=== PATIENT | male | born 1995 | race Caucasian/White ===

== ENCOUNTER 2016-10-28 12:33 | Emergency (ER) | payer OTHER ==
--- NOTE | 2016-10-28 14:30 | DIAGNOSTIC IMAGING REPORT ---
PROCEDURE: CT ABD/PELVIS WITH CONTRAST CLINICAL INDICATION: ABDOMINAL PAIN TECHNIQUE: 115 ml of Isovue 300 were injected intravenously and axial images were obtained of the entire abdomen and pelvis with sagittal and coronal reformations. COMPARISON: None. FINDINGS: ABDOMEN: Partially visualized small right medial basilar infiltrate. Liver, gallbladder, pancreas, spleen, adrenal glands, kidneys and abdominal aorta are normal. There is some fluid in the large bowel. Small amount of free fluid around the tip of the liver. PELVIS: Prostate and bladder are normal. Small amount of free fluid. Several nondilated fluid filled loops of small bowel. Appendix not clearly identified but no evidence of acute appendicitis. Bones are unremarkable. IMPRESSION: 1. Fluid in the small and large bowel suggestive of enterocolitis 2. Small amount of free fluid, likely related to enterocolitis 3. Small right basilar infiltrate 4. Results discussed with MERRICK Quach . All CT scans at this facility use dose modulation, iterative reconstruction, and/or weight-based dosing when appropriate to reduce radiation dose to as low as reasonably achievable.
--- NOTE | 2016-10-28 15:16 | ED CLINICAL REPORT ---
Clinical Report - Physicians/Mid Levels Formerly [facility] [address] [place] [address] 10/28/2016 12:36 Patient: BRIGIDO REMY Time Seen: 12:47 Oct 28 2016. Arrived- By private vehicle. Historian- patient. HISTORY OF PRESENT ILLNESS Chief Complaint: ABDOMINAL PAIN. It is described as "pain" and it is described as located in the right chest and the epigastric area and in the upper abdomen. This started 5 days [employer] and is still present. The patient has had nausea, loss of appetite, vomiting and diarrhea. (patient reports nausea vomiting diarrhea decreased appetite and fevers over the last 2 days. Reports generalized abdominal pain. Denies any sick contacts, recent medications. Denies any recent antibiotics. Denies history of similar. Patient smokes marijuana off and on last smoked yesterday. Was seen in urgent care clinic yesterday, given some IV hydration, as well as some nausea medications.). REVIEW OF SYSTEMS No constipation, difficulty with urination, pain with urination, urinary frequency or difficulty breathing. No chills. He has had fever. All systems otherwise negative, except as recorded above. PAST HISTORY No history of bowel obstruction. SOCIAL HISTORY Smoker- current status unknown. History of drug use: marijuana. No alcohol use. ADDITIONAL NOTES The nursing notes have been reviewed. PHYSICAL EXAM Vital Signs: 10/28/2016 12:40 BP: 121/78. HR: 120. RR: 20. O2 saturation: 97%. Temp: 102.1 F. Pain level now: 9/10. Appearance: Alert. Eyes: Eyes normal inspection. ENT: Nose normal. Neck: Normal inspection. CVS: Tachycardia. Respiratory: Breath sounds normal. Abdomen: Mild tenderness in the epigastric area and periumbilical area. No organomegaly. No mass. No obesity, rebound tenderness, distention, mass present or organomegaly. No femoral pulse deficit, scar present or guarding. Neuro: Oriented X 3. No motor deficit. LABS, X-RAYS, AND EKG Chest X-ray: (probably r. infiltrate.). The X-rays were independently viewed by me. Abdominal CT: IMPRESSION: 1. Fluid in the small and large bowel suggestive of enterocolitis 2. Small amount of free fluid, likely related to enterocolitis 3. Small right basilar infiltrate 4. Results discussed with MERRICK Quach . All CT scans at this facility use dose modulation, iterative reconstruction, and/or weight-based dosing when appropriate to reduce radiation dose to as low as reasonably achievable. Electronically Final signed by:Miguel Rooney MD 10/28/2016 2:30:12 PM. Laboratory Tests: CBC w Diff: (BRUCE: 10/28/2016 12:40) ( OrgRcvd 10/28/2016 13:04) IP Test Result Flag Units (Reference) WHITE BLOOD COUNT 5.4 K/uL (4.5-11.5) RED BLOOD COUNT 5.56 M/uL (4.50-5.90) HEMOGLOBIN 17.0 gm/dL (13.5-17.5) HEMATOCRIT 49.6 % (41.0-53.0) MEAN CELL VOLUME 89 fL (80-100) MEAN CORPUSCULAR HGB 31 pg (26-34) MEAN CORPUSCULAR HGB CONC 34 g/dL (31-37) RED CELL DISTRIBUTION WIDTH 12.5 % (11.6-14.8) NEUTROPHIL % 71.0 % (50-75) LYMPH % 18.0 L % (25-40) MONO % 10.9 % (3-14) EOSINOPHIL % 0 % (0-4) BASOPHIL % 0.1 % (0-2) CMP: (BRUCE: 10/28/2016 12:40) ( OrgRcvd 10/28/2016 13:20) Final results Test Result Flag Units (Reference) GLUCOSE 103 mg/dL (70-110) BUN 7 mg/dL (7-18) CREATININE 1.1 mg/dL (0.6-1.3) Estimated GFR >60 mL/min Estimated GFR- >60 mL/min Note: Persistent reduction over 3 months in eGFR<60 mL/min/1.73 m2 defines CKD. Patients with eGFR values>=60 mL/min/1.73 m2 may also have CKD if evidence ofpersistent proteinuria. Additional information may be foundat [email or web address].org. SODIUM 134 L mmol/L (136-145) POTASSIUM 3.5 mmol/L (3.5-5.1) CHLORIDE 94 L mmol/L (98-107) CARBON DIOXIDE 25 mmol/L (21-32) CALCIUM 8.2 L mg/dL (8.5-10.1) TOTAL PROTEIN 7.9 g/dL (6.4-8.2) ALBUMIN 3.8 g/dL (3.3-5.0) BILIRUBIN, TOTAL 0.9 mg/dL (0.0-1.0) ALKALINE PHOSPHATASE 45 L U/L (46-116) AST (SGOT) 23 U/L (15-37) ALT (SGPT) 21 U/L (12-78) LIPASE 148 U/L (73-393) Rapid Influenza Screen: (BRUCE: 10/28/2016 12:50) ( MsgRcvd 10/28/2016 13:19) Final results SPECIMEN DESCRIPTION: N Test Result Flag Units (Reference) RAPID INFLUENZA SCREEN DATE: 10/28/16 INFLUENZA A: NEGATIVE SCREEN FOR INFLUENZA A INFLUENZA B: NEGATIVE SCREEN FOR INFLUENZA B . PROGRESS AND PROCEDURES Course of Care: The patient in the emergency department with fever, tachycardia, improvement with Tylenol and Toradol. Abdomen with epigastric tenderness. No guarding or peritoneal signs, or McBurney's point tenderness. CT of the abdomen with possible signs of infiltrate right side, as well as signs of enterocolitis. Patient is otherwise stable. No emesis, able tolerate small sips in the emergency department. Her chest x-ray also most consistent with a right-sided possible pneumonia, given her fevers and cough will treat. Patient given 2 L of IV fluid in the emergency department, significant improvement of his symptoms. To follow up outpatient. 10/28/2016 15:30 BP: 113/67. HR: 78. RR: 16. O2 saturation: 97%. Temp: 99.8 F. Pain level now: 10/25. 10/28/2016 14:10 BP: 113/67. HR: 78. RR: 16. O2 saturation: 97%. Pain level now: 8/10. Patient is stable. Physical exam findings are improved. Symptoms better. Patient/family counseled. CLINICAL IMPRESSION Diarrhea Pneumonia. Vital signs recorded and reviewed; empiric antibiotics given in the ED and prescribed. Acute gastroenteritis. INSTRUCTIONS Alternate Tylenol (Acetaminophen) or Motrin (Ibuprofen) for fever control. Take according to label instructions. Rest. Do not work for three days. Drink plenty of fluids. Warnings: Further evaluation is necessary. SEDATIVE MEDICATION: You were given sedative medication during your visit. Do not drive or operate dangerous machinery. Prescription Medications: Hydrocodone/APAP 5mg / 325mg: take 1 orally every 6 hours as needed for pain. No refill. Zithromax 250 mg tablets: every day for 4 days. Total course 4 days. (start on (ER DOSE on 10/28)) Ibuprofen 600 mg tablets: take 1 tablet orally every 6 hours for 3 days, as needed for pain or fever. Dispense fifteen (15). No refill. Phenergan 12.5 mg tablets: take 1 orally every 6 hours as needed for nausea or vomiting. Dispense ten (10). No refill. Substitution is permissible Reglan 10 mg tablets: take 1 orally every 8 hours for 3 days as needed for nausea or vomiting. Dispense ten (10). No refills. Substitution is permissible. OTC Medications: Tylenol 325 mg (available over the counter): take 1 orally every 6 hours for 3 days, as needed for fever or pain. Dispense fifteen (15). No refill. Substitution is permissible. Follow-up: Follow up with your doctor in three if not well. (Electronically signed by Maria L Tejada P.A.-C 10/28/2016 15:48)
--- NOTE | 2016-10-28 15:16 | ED ORDER SUMMARY ---
..... Patient: BRIGIDO REMY OrderSheet [facility] VisitID: [id number] [place] [address] 21y, M Registration Date/Time: 10/28/2016 ORDER SHEET Weight: 60.3 kg (stated) Allergies: Amoxicillin, Penicillins GENERAL ORDERS: CBC w Diff Urgent (12:51 10/28/2016 EKoroleva P.A.-C) (Ack 12:52 Shyann) (12:58 DDean R.N.) CMP Urgent (12:51 10/28/2016 EKoroleva P.A.-C) (Ack 12:52 Shyann) (12:58 DDean R.N.) UA-Culture if indicated Urgent (12:52 10/28/2016 EKoroleva P.A.-C) (Ack 12:52 Shyann) (15:36 DDean R.N.) Lipase Urgent (12:52 10/28/2016 EKoroleva P.A.-C) (Ack 12:52 Shyann) (12:58 DDean R.N.) Rapid Influenza Screen (Nasal Pharyngeal) (n) Urgent (12:52 10/28/2016 EKoroleva P.A.-C) (Ack 13:14 Shyann) (13:24 DDean R.N.) PCT (Procalcitonin) Urgent (13:02 10/28/2016 EKoroleva P.A.-C) (Ack 13:13 Shyann) (13:21 DDean R.N.) CT Abd/Pel w Cont (No) (see lab) Urgent (13:35 10/28/2016 EKoroleva P.A.-C) (Ack 13:45 Shyann) (13:59 Samreen) Chest 2V Urgent (14:30 10/28/2016 EKoroleva P.A.-C) (Ack 14:31 TBergley) (14:52 Samreen) MEDICATION ORDERS: Tylenol PO 1,000 mg (NOW) (12:52 10/28/2016 EKoroleva P.A.-C) (Ack 13:14 DDean R.N.) (Cancelled: Patient [id number] DDean R.N.) Phenergan IV 12.5 mg (HIGH ALERT MEDICATION, NOW) (13:38 10/28/2016 EKoroleva P.A.-C) (13:42 DDean R.N.) Tylenol PO 500 mg (NOW) (14:21 10/28/2016 DDean R.N. per protocol) (14:22 DDean R.N.) Azithromycin PO 500 mg (NOW) (15:14 10/28/2016 EKoroleva P.A.-C) (15:36 DDean R.N.) IV FLUIDS: IV NS : initial bolus 1000 mL (1000 mL/hr), then 1000 mL/hr for X1 (NOW); Lonny (12:51 10/28/2016 EKoroleva P.A.-C) (Ack 12:58 DDean R.N.) (13:24 DDean R.N.) Zofran IV 4 mg (NOW) (12:51 10/28/2016 EKoroleva P.A.-C) (Ack 13:14 DDean R.N.) (13:25 DDean R.N.) Reglan IV 10 mg (NOW) (12:51 10/28/2016 EKoroleva P.A.-C) (Ack 13:14 DDean R.N.) (13:25 DDean R.N.) Toradol IV 30 mg (NOW) (12:52 10/28/2016 EKoroleva P.A.-C) (Ack 13:14 DDean R.N.) (13:25 DDean R.N.) Dilaudid IV 0.5 mg (HIGH ALERT MEDICATION, NOW) (13:38 10/28/2016 EKoroleva P.A.-C) (13:42 DDean R.N.) ORDER SHEET NOTES: [Electronically signed by Ember Bergman R.N. (15:46 10/28/2016)] [Electronically signed by Maria L Tejada PSunshineASunshine-C (15:48 10/28/2016)] [Electronically locked/signed by Ember Bergman R.N. (15:46 10/28/2016)]
--- NOTE | 2016-10-28 15:16 | ED NURSING NOTES ---
Clinical Report - Nurses [facility] [place] [address] [place] [address] 10/28/2016 12:36 Patient: BRIGIDO REMY TRIAGE Triage time 1240. Acuity: LEVEL 3. Chief Complaint: ABDOMINAL PAIN, NAUSEA, VOMITING and DIARRHEA. --12:47 Ember Bergman R.N. 12:40 10/28/16. BP: 121/78. HR: 120. RR: 20. O2 saturation: 97%. Temp: 102.1 F. Pain level now: 02/25. --12:47 Ember Bergman R.N. Weight: 60.3 kg stated. Height/Length: 71.5 inches Per Patient. BMI: 18.3. --12:47 Ember Bergman R.N. Medications zofran 4mg ODT, last used 0600 . --12:45 Ember Bergman R.N. Allergies Amoxicillin. Penicillins. --12:45 Ember Bergman R.N. History Arrived by private vehicle. Historian: patient. Accompanied by mother. Primary physician (glory). Onset. (since Sunday- was seen at clinic on Sunday). He has had nausea, vomiting and diarrhea. He has had abdominal pain (midline abd pain, better after he vomits). PAST MEDICAL HX: Negative. SURGERY HX: No history of previous surgery. SOCIAL HX: Light tobacco smoker- less than 1/2 a pack per day. Occasional alcohol use. History of drug use: marijuana. --12:47 Ember Bergman R.N. PROBLEMS: no known problems. ADDITIONAL SURGERIES: no known surgeries. Interventions ID band on patient. To treatment room. --12:47 Ember Bergman R.N. PHYSICAL ASSESSMENT 12:40. Ambulatory to room. Patient gowned. GENERAL / NEURO / PSYCH: Alert. Oriented X 4. Appears in pain and anxious. RESPIRATORY: Respirations not labored. CVS: Capillary refill less than 2 seconds. GI / : The patient has had nausea. Emesis noted. Abdominal tenderness. SKIN: Skin is warm and dry. --12:48 Ember Bergman R.N. 12:40. GI / : ( denies black or bloody stools,). --13:17 Ember Bergman R.N. NURSING PROGRESS NOTES 12:40. Patient gowned. Reassurance given. Patient identifiers checked. Call light placed in reach. Side rails up. Bed placed in lowest position. Patient ready for evaluation- chart flagged. Care transferred. --12:47 Ember Bergman R.N. 12:49 10/28/2016 Site #1 started via IV in the right antecubital space with an 20g angiocath, with aseptic technique and good blood return; one attempt. Blood drawn: rainbow set. Labeled in the presence of the patient and sent to the lab. Saline lock flushed with saline (by Анна FLORES). --12:49 Ember Bergman R.N. 13:00. Patient ID band checked for patient name and birthdate: patient confirmed. Flu swab obtained by RN via nasal swab. Labeled in the presence of the patient and sent to lab. --13:23 Ember Bergman R.N. 12:55 10/28/2016 Started bag #1 1000 mL IV Fluids IV NS (Saline); at 1000 mL/hr over 1 hour(s) via site #1 via IV pump. IV patency established. IV site checked: no pain, redness, or swelling. IV flushed thoroughly pre- and post-medication administration. --13:24 Ember Bergman R.N. 13:02 10/28/2016 Zofran (Ondansetron HCl) IVP 4 mg given over 1 minute(s) via site #1. IV patency established. IV site checked: no pain, redness, or swelling. IV flushed thoroughly pre- and post-medication administration. IVP given by RN. --13:25 Ember Bergman R.N. 13:03 10/28/2016 Toradol IVP 30 mg given over 1 minute(s) via site #1. IV patency established. IV site checked: no pain, redness, or swelling. IV flushed thoroughly pre- and post-medication administration. IVP given by RN. --13:25 Ember Bergman R.N. 13:05 10/28/2016 Reglan (Metoclopramide HCl) IVP 10 mg given over 1 minute(s) via site #1. IV patency established. IV site checked: no pain, redness, or swelling. IV flushed thoroughly pre- and post-medication administration. IVP given by RN. --13:25 Ember Bergman R.N. 13:15 10/28/16. BP: 111/70. HR: 97. RR: 20. O2 saturation: 100% on room air. Temp: deferred. Pain level now: 01/25. --13:27 Ember Bergman R.N. 13:35 10/28/16. BP: 110/65. HR: 85. RR: 18. O2 saturation: 96% on room air. Temp: 102.2 F. Pain level now: 01/25. Additional comments: Pt given po tyenol, only able to take first pill at this time, ERPA notified, additional nausea meds given . --13:41 Ember Bergman R.N. 13:45. Patient transported to MD by stretcher with tech. --13:48 Ember Bergman R.N. 13:35 10/28/2016 Tylenol (Acetaminophen) PO Tablets 500 mg given. Allergies verified and confirmed 5 rights. --14:22 Ember Bergman R.N. 13:41 10/28/16. ( Pt given instructions and equipment to give UA, Pt unable to void at this time.). --13:41 Ember Bergman R.N. 13:42 10/28/2016 Dilaudid (HYDROmorphone HCl PF) IVP 0.5 mg given over 1 minute(s) via site #1. IV patency established. IV site checked: no pain, redness, or swelling. IV flushed thoroughly pre- and post-medication administration. IVP given by RN. --13:42 Ember Bergman R.N. 13:42 10/28/2016 PHENERGAN (Promethazine HCl) IVP 12.5 mg given over 1 minute(s) via site #1. IV patency established. IV site checked: no pain, redness, or swelling. IV flushed thoroughly pre- and post-medication administration. IVP given by RN. --13:42 Ember Bergman R.N. 14:00 10/28/16. Patient returned from CT by stretcher with tech. --14:00 Ember Bergman R.N. 14:11 10/28/2016 IV Fluids IV NS Bag Change: bag #1 infused. Total amount infused: 1000. STARTED bag #2 (1000 mL) at 1000 mL/hr via IV pump. IV patency established. IV site checked: no pain, redness, or swelling. IV flushed thoroughly. --14:11 Ember Bergman R.N. 14:10 10/28/16. BP: 113/67. HR: 78. RR: 16. O2 saturation: 97% on room air. Temp: deferred. Pain level now: 8/10. Additional comments: waiting on CT results, pt reminded that we still need a UA . --14:13 Ember Bergman R.N. 14:20 10/28/16. Reassessment after medication administered. He is calm. Overall patient status is improved- he states feels better (states pain is now 5/10, and tempt is 100.3po). --14:20 Ember Bergman R.N. 15:10/28/2016 Azithromycin PO Capsules 500 mg given. Allergies verified and confirmed 5 rights. --15:36 Ember Bergman R.N. 14:40. Patient ID band checked for patient name and birthdate: patient confirmed. Clean catch urine collected with return of yellow-colored clear urine; odor is normal; sample sent to lab for urinalysis and culture. Specimen labeled in the presence of the patient. --15:44 Ember Bergman R.N. 15:10/28/2016 Site #1 removed upon discharge. Bandaid applied. --15:45 Ember Bergman R.N. 15:10/28/2016 IV Fluids IV NS Discontinued: bag #2 STOPPED upon discharge. Total amount infused: 900 mL. IV patency established. IV site checked: no pain, redness, or swelling. IV flushed thoroughly. --15:45 Ember Bergman R.N. DISPOSITION / DISCHARGE 15:30. Condition at departure: improved and stable. No learning barriers present. Discharge instructions provided and reviewed with the patient. Reviewed medication(s) (phenergan, zithromax, vicodin, reglan, tylenol, motrin). Treatments reviewed (fluids, off work). Patient verbalized understanding. Written instructions not provided in Guamanian. The patient was discharged home and accompanied by spouse. He left the Emergency Department ambulatory and via private vehicle. Parent driving. --15:43 Ember Bergman R.N. 15:30 10/28/16. BP: 113/67. HR: 78. RR: 16. O2 saturation: 97% on room air. Temp: 99.8 F. Pain level now: 10. --15:43 Ember Bergman R.N. Locked/Released at 10/28/2016 15:46 by Ember Bergman R.N.
--- NOTE | 2016-10-28 15:16 | ED ORDER SUMMARY ---
..... Patient: BRIGIDO REMY OrderSheet [facility] VisitID: [id number] [place] [address] 21y, M Registration Date/Time: 10/28/2016 ORDER SHEET Weight: 60.3 kg (stated) Allergies: Amoxicillin, Penicillins GENERAL ORDERS: CBC w Diff Urgent (12:51 10/28/2016 EKoroleva P.A.-C) (Ack 12:52 Shyann) (12:58 DDean R.N.) CMP Urgent (12:51 10/28/2016 EKoroleva P.A.-C) (Ack 12:52 Shyann) (12:58 DDean R.N.) UA-Culture if indicated Urgent (12:52 10/28/2016 EKoroleva P.A.-C) (Ack 12:52 Shyann) (15:36 DDean R.N.) Lipase Urgent (12:52 10/28/2016 EKoroleva P.A.-C) (Ack 12:52 Shyann) (12:58 DDean R.N.) Rapid Influenza Screen (Nasal Pharyngeal) (n) Urgent (12:52 10/28/2016 EKoroleva P.A.-C) (Ack 13:14 Shyann) (13:24 DDean R.N.) PCT (Procalcitonin) Urgent (13:02 10/28/2016 EKoroleva P.A.-C) (Ack 13:13 Shyann) (13:21 DDean R.N.) CT Abd/Pel w Cont (No) (see lab) Urgent (13:35 10/28/2016 EKoroleva P.A.-C) (Ack 13:45 Shyann) (13:59 Samreen) Chest 2V Urgent (14:30 10/28/2016 EKoroleva P.A.-C) (Ack 14:31 TBergley) (14:52 Samreen) MEDICATION ORDERS: Tylenol PO 1,000 mg (NOW) (12:52 10/28/2016 EKoroleva P.A.-C) (Ack 13:14 DDean R.N.) (Cancelled: Patient [id number] DDean R.N.) Phenergan IV 12.5 mg (HIGH ALERT MEDICATION, NOW) (13:38 10/28/2016 EKoroleva P.A.-C) (13:42 DDean R.N.) Tylenol PO 500 mg (NOW) (14:21 10/28/2016 DDean R.N. per protocol) (14:22 DDean R.N.) Azithromycin PO 500 mg (NOW) (15:14 10/28/2016 EKoroleva P.A.-C) (15:36 DDean R.N.) IV FLUIDS: IV NS : initial bolus 1000 mL (1000 mL/hr), then 1000 mL/hr for X1 (NOW); Lonny (12:51 10/28/2016 EKoroleva P.A.-C) (Ack 12:58 DDean R.N.) (13:24 DDean R.N.) Zofran IV 4 mg (NOW) (12:51 10/28/2016 EKoroleva P.A.-C) (Ack 13:14 DDean R.N.) (13:25 DDean R.N.) Reglan IV 10 mg (NOW) (12:51 10/28/2016 EKoroleva P.A.-C) (Ack 13:14 DDean R.N.) (13:25 DDean R.N.) Toradol IV 30 mg (NOW) (12:52 10/28/2016 EKoroleva P.A.-C) (Ack 13:14 DDean R.N.) (13:25 DDean R.N.) Dilaudid IV 0.5 mg (HIGH ALERT MEDICATION, NOW) (13:38 10/28/2016 EKoroleva P.A.-C) (13:42 DDean R.N.) ORDER SHEET NOTES: [Electronically signed by Ember Bergman R.N. (15:46 10/28/2016)] [Electronically signed by Maria L Tejada PSunshineASunshine-C (15:48 10/28/2016)] [Electronically locked/signed by Ember Bergman R.N. (15:46 10/28/2016)]
--- NOTE | 2016-10-28 15:48 | ED DISCHARGE INSTRUCTIONS ---
Patient: BRIGIDO REMY General Instructions [facility] VisitID: [id number] [place] [address] 21y, M Registration Date/Time: 10/28/2016 Diarrhea Pneumonia. Vital signs recorded and reviewed; empiric antibiotics given in the ED and prescribed. Acute gastroenteritis. INSTRUCTIONS Alternate Tylenol (Acetaminophen) or Motrin (Ibuprofen) for fever control. Take according to label instructions. Rest. Do not work for three days. Drink plenty of fluids. Warnings: Further evaluation is necessary. SEDATIVE MEDICATION: You were given sedative medication during your visit. Do not drive or operate dangerous machinery. Prescription Medications: Hydrocodone/APAP 5mg / 325mg: take 1 orally every 6 hours as needed for pain. No refill. Zithromax 250 mg tablets: every day for 4 days. Total course 4 days. (start on (ER DOSE on 10/28)) Ibuprofen 600 mg tablets: take 1 tablet orally every 6 hours for 3 days, as needed for pain or fever. Dispense fifteen (15). No refill. Phenergan 12.5 mg tablets: take 1 orally every 6 hours as needed for nausea or vomiting. Dispense ten (10). No refill. Substitution is permissible Reglan 10 mg tablets: take 1 orally every 8 hours for 3 days as needed for nausea or vomiting. Dispense ten (10). No refills. Substitution is permissible. OTC Medications: Tylenol 325 mg (available over the counter): take 1 orally every 6 hours for 3 days, as needed for fever or pain. Dispense fifteen (15). No refill. Substitution is permissible. Follow-up: Follow up with your doctor in three if not well. ADDITIONAL INFORMATION Diarrhea, Uncertain Cause (Adult, Report Pending) Diarrhea has several possible causes. Commonstomach fluis caused by a virus. Food poisoning, bacteria or parasites are other causes for diarrhea. Only diarrhea caused by bacteria or parasites requires treatment with an antibiotic. Diarrhea from a virus or food poisoning improves with simple home treatment. A stool sample is needed to make the diagnosis of an infection with bacteria or parasites. Up to three stool specimens may be required to diagnose This may take up to two days to get the result. It may be necessary to wait until the stool test is complete to make the diagnosis and select the best antibiotic to prescribe. Home Care: If symptoms are severe, rest at home for the next 24 hours or until you are feeling better. You may use acetaminophen (Tylenol) or ibuprofen (Motrin, Advil) to control fever, unless another medicine was prescribed. [NOTE: If you have chronic liver or kidney disease or ever had a stomach ulcer or GI bleeding, talk with your doctor before using these medicines.] (Aspirin should never be used in anyone under 18 years of age who is ill with a fever. It may cause severe liver damage.) Avoid tobacco, caffeine and alcohol, which may worsen your symptoms. If anti-diarrhea medicine was prescribed, take this only as directed. Sometimes anti-diarrhea medicine can make your condition worse if the cause is an infectious diarrhea. Therefore, anti-diarrhea medicine should not be taken for this condition unless advised by your doctor. During The First 12-24 Hours follow the diet below: BEVERAGES: Sport drinks like Gatorade, soft drinks without caffeine; renae nayely, mineral water (plain or flavored), decaffeinated tea and coffee. SOUPS: Clear broth, consomm and bouillon DESSERTS: Plain gelatin (Jell-O), popsicles and fruit juice bars. During The Next 24 Hours you may add the following to the above: Hot cereal, plain toast, bread, rolls, crackers Plain noodles, rice, mashed potatoes, chicken noodle or rice soup Unsweetened canned fruit (avoid pineapple), bananas Limit fat intake to less than 15 grams per day by avoiding margarine, butter, oils, mayonnaise, sauces, gravies, fried foods, peanut butter, meat, poultry and fish. Limit fiber; avoid raw or cooked vegetables, fresh fruits (except bananas) and bran cereals. Limit caffeine and chocolate. No spices or seasonings except salt. During The Next 24 Hours Gradually resume a normal diet, as you feel better and your symptoms lessen. Follow Up with your doctor or as advised if you are not improving over the next two days. If you were asked to bring a specimen from home, bring the sample on the day of collection. You may call in 2 days (or as directed) for the results. Get Prompt Medical Attention if any of the following occur: Increasing abdominal pain or constant lower right abdominal pain Continued vomiting (unable to keep liquids down) Frequent diarrhea (more than 5 times a day) Blood in vomit or stool (black or red color) Reduced oral intake Dark urine, reduced urine output Weakness, dizziness, fainting Drowsiness, confusion, stiff neck or seizure Fever of 100.4F (38C) oral or higher, not better with fever medication New rash Viral Gastroenteritis (6Yr-Adult) Gastroenteritis is another name for thestomach flu.It is most often caused by a virus that affects the stomach and intestinal tract. Symptoms include stomach cramping and fever, vomiting and/or diarrhea, and can last from 2 to 7 days. The danger from repeated vomiting or diarrhea is dehydration. This is the loss of too much water and minerals from the body. When this occurs, body fluids must be replaced. Antibiotics are not effective for this illness, but simple home treatment will be helpful. Home Care If symptoms are severe, rest at home for the next 24 hours. Avoid tobacco, caffeine, and alcohol use, which can worsen symptoms. Acetaminophen (Tylenol) or ibuprofen (Motrin, Advil) may be usedfor fever or pain unless another medication was prescribed. NOTE: If you have chronic liver or kidney disease or ever had a stomach ulcer or GI bleeding, talk with your doctor before using these medicines. Aspirin should never be used in anyone under 18 years of age who is ill with a fever. It may cause severe liver damage. If medicines for diarrhea or vomiting were prescribed, be sure they are takenonly as directed. If vomiting, drink small amounts of clear fluids (such as water, sports drinks, clear sodas) at frequent intervals to prevent dehydration. Start with 1 to 2 tablespoons every 10 minutes. Once vomiting stops, follow these guidelines: During The First 12 To 24 Hours follow the diet below: Beverages: Sport drinks like Gatorade, soft drinks without caffeine; renae nayely, mineral water (plain or flavored), decaffeinated tea and coffee. Soups: Clear broth, consomm and bouillon Desserts: Plain gelatin (Jell-O), Popsicles and fruit juice bars. During The Next 24 Hours you may add the following to the above: Hot cereal, plain toast, bread, rolls, crackers Plain noodles, rice, mashed potatoes, chicken noodle or rice soup Unsweetened canned fruit (avoid pineapple), bananas Limit fat intake to less than 15 grams per day by avoiding margarine, butter, oils, mayonnaise, sauces, gravies, fried foods, peanut butter, meat, poultry, and fish. Limit fiber; avoid raw or cooked vegetables, fresh fruits (except bananas), and bran cereals. Limit caffeine and chocolate. Do not use spices or seasonings except salt. During The Next 24 Hours The patient can gradually resume a normal diet as symptoms lessen. Preventing Spread Hand washing with soap and water is the best way to prevent the spread of viruses. Caregivers should wash their hands before andafter touching the sick person. The sick person, as well as everyone in the family,should wash their hands after using the toilet and before meals. Clean the toilet after each use. People with diarrhea should not prepare food for others. If you are preparing your own foods, wash your hands before and after. Follow Up with your doctor as advised. Call your doctor if you are not improving over the next 2 to 3 days. If a stool (diarrhea) sample was taken, you may call in 2 days (or as directed) for the results. Get Prompt Medical Attention if any of the following occur: Increasing abdominal pain Continued vomiting (unable to keep liquids down) Frequent diarrhea (more than 5 times a day) Blood in vomit or stool (black or red color) Dark urine, reduced urine output, or extreme thirst Weakness, dizziness, fainting Drowsiness, confusion, stiff neck, or seizure Fever of 100.4F (38C) oral or higher, not better with fever medication New rash Pneumonia (Adult) Pneumonia is an infection deep within the lung, in the small air sacs (alveoli). It may be due to a virus or bacteria and is usually treated with an antibiotic. Severe cases require treatment in the hospital. Milder cases can be treated at home. Symptoms usually start to improve during the first2 days of treatment. Home Care: Rest at home for the first 23 days or until you feel stronger. When resuming activity, dont let yourself become overly tired. Avoid exposure to cigarette smoke (yours or others). You may use acetaminophen (Tylenol) or ibuprofen (Motrin, Advil) to control fever or pain, unless another medicine was prescribed. [NOTE: If you have chronic liver or kidney disease or ever had a stomach ulcer or GI bleeding, talk with your doctor before using these medicines.] (Aspirin should never be used in anyone under 18 years of age who is ill with a fever. It may cause severe liver damage.) Your appetite may be poor so a light diet is fine. Keep well hydrated by drinking 68 glasses of fluids per day (water, sport drinks such as Gatorade, sodas without caffeine, juices, tea, soup, etc.). This will help loosen secretions in the lung, making it easier for you to cough up the phlegm (sputum). If you also have heart or kidney disease, check with your doctor before you drink extra amounts of fluids. Finish all antibiotic medicine prescribed, even if you are feeling better after a few days. Follow Up with your doctor in the next 23 days (or as advised) to be sure you are responding properly to the medicine. [NOTE: If you are age 65 or older, or if you have chronic lung disease (asthma, emphysema or COPD), we recommendthe pneumococcal vaccination and a yearlyinfluenzavaccination(flu-shot) every . Ask your doctor about this.] Get Prompt Medical Attention if any of the following occur: Not getting better within the first 48 hours of treatment Increasing shortness of breath or rapid breathing (over 25 breaths/minute) Coughing up blood or increasing chest pain with breathing Fever of 100.4F (38C) oral or higher, not better with fever medication Increasing weakness, dizziness or fainting Increasing thirst or dry mouth Sinus pain, headache or a stiff neck Chest pain not caused by coughing Fever Control (Adult) A fever is a natural reaction of the body to an illness. In most cases, the temperature itself is not harmful. It actually helps the body fight infections. A fever does not need to be treated unless you feel very uncomfortable. Home Care If you feel warm, check your temperature. If you feel very uncomfortable and your temperature is at or higher than 100.4F (38C) oral, you may take acetaminophen (Tylenol) every 4 to 6 hours. If you cant take or keep down oral medicine, ask your pharmacist for Tylenol suppositories, which you can get without a prescription. If the fever does not respond to acetaminophen within 1 hour, take ibuprofen (Advil or Motrin). If this works, keep taking the ibuprofen every 6 to 8 hours. Note: If you have chronic liver or kidney disease or ever had a stomach ulcer or GI bleeding, talk with your doctor before using these medications. If either medication alone does not keep the fever down, you may alternate the two medicines every 3 to 4 hours, only if your healthcare provider has instructed you to do so. For example, take Motrin then wait 3 hours, take Tylenol then wait 3 hours, take Motrin, and so on. Follow your healthcare providers instructions exactly. Clothing: Keep clothing light because excess body heat is lost through the skin. The fever will go up if you wear extra layers or wrap in blankets. Fluids: Fever causes the body to lose water through evaporation. Drink plenty of fluids such as water, juice, clear sodas, renae nayely, or lemonade. Do not use aspirin in anyone under 18 years of age who is ill with a fever. It can cause severe liver damage. Follow Up with your doctor or as advised by our staff if you do not get better after 48 hours. Get Prompt Medical Attention if any of the following occur: Fever does not get better after taking fever medication Fast or difficult breathing Earache, sinus pain, stiff or painful neck, headache, repeated diarrhea or vomiting You feel unusually irritable, drowsy, or confused A rash appears You feel weak or dizzy, or that you might faint [place] Diet A bland diet is used for patients with an upset stomach. It consists of foods that are mild and easy to digest. It is better to eat small frequent meals rather than three large meals a day. BEVERAGES OK: Fruit juices, non-caffeinated teas and coffee, non-carbonated dyson AVOID: Carbonated beverage, caffeinated tea and coffee, all alcoholic beverages BREAD OK: Refined white, wheat or rye bread, vishnu or soda crackers, Essence toast, plain rolls, bagels AVOID: Whole-grain bread CEREAL OK: Refined cereals: cooked or ready to eat AVOID: Whole grain cereals and granola, or those containing bran, seeds or nuts DESSERTS OK: Peanut butter and all others except those to "avoid" AVOID: Chocolate, cocoa, coconut, popcorn, nuts, seeds, jam, marmalade FRUITS OK: Canned, cooked, frozen or fresh fruits without seeds or tough skin AVOID: Olives, skin and seeds of fruit MEATS OK: All fresh or preserved meat, fish and fowl AVOID: Any that are prepared with those spices to "avoid" CHEESE & EGGS OK: Eggs, cottage cheese, cream cheese, other cheeses AVOID: All cheeses made with those spices to "avoid" POTATOES & PASTA OK: Potato, rice, macaroni, noodles, spaghetti AVOID: None SOUPS OK: All soups without heavy seasoning AVOID: Soups made with those spices to "avoid" VEGETABLES OK: Canned, cooked, fresh or frozen mildly flavored vegetables without seeds, skins or coarse fiber AVOID: Vegetables prepared with those spices to "avoid"; skin and seeds of vegetables and those with coarse fiber SPICES OK: Salt, lemon and red cliff juice, vinegar, all extracts, moses, cinnamon, thyme, mace, allspice, paprika AVOID: Bee powder, cloves, pepper, seed spices, garlic, gravy pickles, highly seasoned salad dressings Clear Liquid Diet Clear liquids are any liquid that you can see through as well as those that are very easy to digest. This is used while the body is recovering from irritation or infection of the stomach or intestinal tract. It may also be used before special procedures or surgery. This diet is to be used no more than three days. You may include the following items. Adults Adults should drink a total of 23 quarts of liquid per day. It may be easier to drink small frequent servings rather than a few large ones. Liquids can include: Fruit juices.Strained orange juice or lemonade (no pulp), apple, grape and cranberry juice, clear fruit drinks, sports drinks Beverages.Sport drinks, sodas, mineral water (plain or flavored), tea, black coffee, liquid gelatin (add twice the recommended amount of water) Soups.Clear broth, consomm, bouillon Desserts.Plain gelatin, popsicles, fruit juice bars Children Over 2 years old The following liquids are acceptable for children over age 2: Fruit juices.Strained orange juice or lemonade (no pulp), apple, grape and cranberry juice, clear fruit drinks Beverages. Sports drinks, sodas, mineral water (plain or flavored), tea, liquid gelatin (add twice the recommended amount of water) Soups. Clear broth, consomm, bouillon Desserts. Plain gelatin, popsicles, fruit juice bars Children under 2 years old Oral rehydration fluids such are available at drug stores and most grocery stores without a prescription. Hydrocodone Bitartrate, Acetaminophen Oral tablet What is this medicine? ACETAMINOPHEN; HYDROCODONE (a set a KARLA brittani fen; martha droe KOE done) is a pain reliever. It is used to treat mild to moderate pain. How should I use this medicine? Take this medicine by mouth. Swallow it with a full glass of water. Follow the directions on the prescription label. If the medicine upsets your stomach, take the medicine with food or milk. Do not take more than you are told to take. Talk to your 21 dealer regarding the use of this medicine in children. This medicine is not approved for use in children. What side effects may I notice from receiving this medicine? Side effects that you should report to your doctor or health youth career specialist as soon as possible: allergic reactions like skin rash, itching or hives, swelling of the face, lips, or tongue breathing problems confusion feeling faint or lightheaded, falls stomach pain yellowing of the eyes or skin Side effects that usually do not require medical attention (report to your doctor or health youth career specialist if they continue or are bothersome): nausea, vomiting stomach upset What may interact with this medicine? alcohol antihistamines isoniazid medicines for depression, anxiety, or psychotic disturbances medicines for sleep muscle relaxants naltrexone narcotic medicines (opiates) for pain phenobarbital ritonavir tramadol What if I miss a dose? If you miss a dose, take it as soon as you can. If it is almost time for your next dose, take only that dose. Do not take double or extra doses. Where should I keep my medicine? Keep out of the reach of children. This medicine can be abused. Keep your medicine in a safe place to protect it from theft. Do not share this medicine with anyone. Selling or giving away this medicine is dangerous and against the law. Store at room temperature between 15 and 30 degrees C (59 and 86 degrees F). Protect from light. Keep container tightly closed. Throw away any unused medicine after the expiration date. Discard unused medicine and used packaging carefully. Pets and children can be harmed if they find used or lost packages. What should I tell my health care provider before I take this medicine? They need to know if you have any of these conditions: brain tumor Crohn's disease, inflammatory bowel disease, or ulcerative colitis drink more than 3 alcohol-containing drinks per day drug abuse or addiction head injury heart or circulation problems kidney disease or problems going to the bathroom liver disease lung disease, asthma, or breathing problems an unusual or allergic reaction to acetaminophen, hydrocodone, other opioid analgesics, other medicines, foods, dyes, or preservatives or trying to get breast-feeding What should I watch for while using this medicine? Tell your doctor or health youth career specialist if your pain does not go away, if it gets worse, or if you have new or a different type of pain. You may develop tolerance to the medicine. Tolerance means that you will need a higher dose of the medicine for pain relief. Tolerance is normal and is expected if you take the medicine for a long time. Do not suddenly stop taking your medicine because you may develop a severe reaction. Your body becomes used to the medicine. This does NOT mean you are addicted. Addiction is a behavior related to getting and using a drug for a non-medical reason. If you have pain, you have a medical reason to take pain medicine. Your doctor will tell you how much medicine to take. If your doctor wants you to stop the medicine, the dose will be slowly lowered over time to avoid any side effects. You may get drowsy or dizzy when you first start taking the medicine or change doses. Do not drive, use machinery, or do anything that may be dangerous until you know how the medicine affects you. Stand or sit up slowly. There are different types of narcotic medicines (opiates) for pain. If you take more than one type at the same time, you may have more side effects. Give your health care provider a list of all medicines you use. Your doctor will tell you how much medicine to take. Do not take more medicine than directed. Call emergency for help if you have problems breathing. The medicine will cause constipation. Try to have a bowel movement at least every 2 to 3 days. If you do not have a bowel movement for 3 days, call your doctor or health youth career specialist. Too much acetaminophen can be very dangerous. Do not take Tylenol (acetaminophen) or medicines that contain acetaminophen with this medicine. Many non-prescription medicines contain acetaminophen. Always read the labels carefully. You have been given the following additional information: Diarrhea, Unk Cause (Adult) Report Pendg Gastroenteritis, Viral (6Y-Adult) Pneumonia (Adult) Fever Control (Adult) Diet, [place] (Adult) Diet, Clear Liquid Hydrocodone Bitartrate, Acetaminophen Oral tablet Rest. Do not work for three days. (Electronically signed by Maria L Tejada P.A.-C 10/28/2016 15:48)
--- NOTE | 2016-10-28 15:48 | ED MED RECONCILIATION SUMMARY ---
Patient: BRIGIDO REMY Medication Reconciliation Report [facility] VisitID: [id number] [address] [place] [address] 21y, M Registration Date/Time: 10/28/2016 Weight: 60.3 kg Height/Length: (not available) BMI: 18.3 ALLERGIES: Amoxicillin, Penicillins The patient's Home Medications are listed below: THE FOLLOWING MEDICATIONS NEED TO BE RECONCILED: zofran 4mg ODT, last used 0600 The source(s) of the original Home Medication information: Not obtained. The following Medications were given to the patient in the Emergency Department: IV NS IV Fluids bolus 0, then 1000 mL/hr, administered: 10/28/2016 12:55:00 PM Zofran [IVP] IVP 4 mg, administered: 10/28/2016 1:02:00 PM Toradol [IVP] IVP 30 mg, administered: 10/28/2016 1:03:00 PM Reglan [IVP] IVP 10 mg, administered: 10/28/2016 1:05:00 PM Dilaudid [IVP] IVP 0.5 mg, administered: 10/28/2016 1:42:00 PM PHENERGAN [IVP] IVP 12.5 mg, administered: 10/28/2016 1:42:00 PM Tylenol [PO] PO 500 mg, administered: 10/28/2016 1:35:00 PM Azithromycin [PO] PO 500 mg, administered: 10/28/2016 3:05:00 PM The following Medications were prescribed to the patient: Hydrocodone/APAP 5mg / 325mg: take 1 orally every 6 hours as needed for pain. No refill. -- Maria L Tejada, P.A.-C Zithromax 250 mg tablets: every day for 4 days. Total course 4 days.(start on (ER DOSE on 10/28)) -- Maria L Tejada, P.A.-C Ibuprofen 600 mg tablets: take 1 tablet orally every 6 hours for 3 days, as needed for pain or fever. Dispense fifteen (15). No refill. -- Maria L Tejada, P.A.-C Tylenol 325 mg (available over the counter): take 1 orally every 6 hours for 3 days, as needed for fever or pain. Dispense fifteen (15). No refill. Substitution is permissible. -- Maria L Tejada P.A.-C Phenergan 12.5 mg tablets: take 1 orally every 6 hours as needed for nausea or vomiting. Dispense ten (10). No refill. Substitution is permissible -- Maria L Tejada P.A.-C Reglan 10 mg tablets: take 1 orally every 8 hours for 3 days as needed for nausea or vomiting. Dispense ten (10). No refills. Substitution is permissible. -- Maria L Tejada P.A.-C
--- NOTE | 2016-10-28 15:48 | ED MAR SUMMARY ---
..... Medication Administration Record [facility] [address] [place] [address] Patient: BRIGIDO REMY Visit ID: [id number] 21y, M Weight: 60.3 kg Height/Length: 71.5 in BMI: 18.3 ALLERGIES: Amoxicillin, Penicillins Start 12:55 10/28/2016 Ember Bergman R.N., Stop 15:20 10/28/2016 Ember Bergman R.N. Medication Administered: IV NS (SALINE), Dose: IV Fluids over 1 hour(s), Rate: 1000 mL/hr, Dispensed: 1000 mL bag, Site: #1 right AC. Medication Ordered: IV NS : initial bolus 1000 mL (1000 mL/hr), then 1000 mL/hr for X1 (NOW); Lonny. Given 13:02 10/28/2016 Ember Bergman R.N. Medication Administered: ZOFRAN [IVP] (ONDANSETRON HCL), Dose: 4 mg IVP over 1 minute(s), Site: #1 right AC. Medication Ordered: Zofran IV 4 mg (NOW). Given 13:03 10/28/2016 Ember Bergman R.N. Medication Administered: TORADOL [IVP], Dose: 30 mg IVP over 1 minute(s), Site: #1 right AC. Medication Ordered: Toradol IV 30 mg (NOW). Given 13:05 10/28/2016 Ember Bergman R.N. Medication Administered: REGLAN [IVP] (METOCLOPRAMIDE HCL), Dose: 10 mg IVP over 1 minute(s), Site: #1 right AC. Medication Ordered: Reglan IV 10 mg (NOW). Given 13:35 10/28/2016 Ember Bergman R.N. Medication Administered: TYLENOL [PO] (ACETAMINOPHEN), Dose: 500 mg Tablets PO. Medication Ordered: Tylenol PO 500 mg (NOW). Given 13:42 10/28/2016 Ember Bergman R.N. Medication Administered: DILAUDID [IVP] (HYDROMORPHONE HCL PF), Dose: 0.5 mg IVP over 1 minute(s), Site: #1 right AC. Medication Ordered: Dilaudid IV 0.5 mg (HIGH ALERT MEDICATION, NOW). Given 13:42 10/28/2016 Ember Bergman R.N. Medication Administered: PHENERGAN [IVP] (PROMETHAZINE HCL), Dose: 12.5 mg IVP over 1 minute(s), Site: #1 right AC. Medication Ordered: Phenergan IV 12.5 mg (HIGH ALERT MEDICATION, NOW). Given 15:05 10/28/2016 Ember Bergman RSunshineN. Medication Administered: AZITHROMYCIN [PO], Dose: 500 mg Capsules PO. Medication Ordered: Azithromycin PO 500 mg (NOW).
--- NOTE | 2016-10-28 15:48 | ED MED RECONCILIATION SUMMARY ---
Patient: BRIGIDO REMY Medication Reconciliation Report [facility] VisitID: [id number] [address] [place] [address] 21y, M Registration Date/Time: 10/28/2016 Weight: 60.3 kg Height/Length: (not available) BMI: 18.3 ALLERGIES: Amoxicillin, Penicillins The patient's Home Medications are listed below: THE FOLLOWING MEDICATIONS NEED TO BE RECONCILED: zofran 4mg ODT, last used 0600 The source(s) of the original Home Medication information: Not obtained. The following Medications were given to the patient in the Emergency Department: IV NS IV Fluids bolus 0, then 1000 mL/hr, administered: 10/28/2016 12:55:00 PM Zofran [IVP] IVP 4 mg, administered: 10/28/2016 1:02:00 PM Toradol [IVP] IVP 30 mg, administered: 10/28/2016 1:03:00 PM Reglan [IVP] IVP 10 mg, administered: 10/28/2016 1:05:00 PM Dilaudid [IVP] IVP 0.5 mg, administered: 10/28/2016 1:42:00 PM PHENERGAN [IVP] IVP 12.5 mg, administered: 10/28/2016 1:42:00 PM Tylenol [PO] PO 500 mg, administered: 10/28/2016 1:35:00 PM Azithromycin [PO] PO 500 mg, administered: 10/28/2016 3:05:00 PM The following Medications were prescribed to the patient: Hydrocodone/APAP 5mg / 325mg: take 1 orally every 6 hours as needed for pain. No refill. -- Maria L Tejada, P.A.-C Zithromax 250 mg tablets: every day for 4 days. Total course 4 days.(start on (ER DOSE on 10/28)) -- Maria L Tejada, P.A.-C Ibuprofen 600 mg tablets: take 1 tablet orally every 6 hours for 3 days, as needed for pain or fever. Dispense fifteen (15). No refill. -- Maria L Tejada, P.A.-C Tylenol 325 mg (available over the counter): take 1 orally every 6 hours for 3 days, as needed for fever or pain. Dispense fifteen (15). No refill. Substitution is permissible. -- Maria L Tejada P.A.-C Phenergan 12.5 mg tablets: take 1 orally every 6 hours as needed for nausea or vomiting. Dispense ten (10). No refill. Substitution is permissible -- Maria L Tejada P.A.-C Reglan 10 mg tablets: take 1 orally every 8 hours for 3 days as needed for nausea or vomiting. Dispense ten (10). No refills. Substitution is permissible. -- Maria L Tejada P.A.-C
--- NOTE | 2016-10-28 15:48 | ED MAR SUMMARY ---
..... Medication Administration Record [facility] [address] [place] [address] Patient: BRIGIDO REMY Visit ID: [id number] 21y, M Weight: 60.3 kg Height/Length: 71.5 in BMI: 18.3 ALLERGIES: Amoxicillin, Penicillins Start 12:55 10/28/2016 Ember Bergman R.N., Stop 15:20 10/28/2016 Ember Bergman R.N. Medication Administered: IV NS (SALINE), Dose: IV Fluids over 1 hour(s), Rate: 1000 mL/hr, Dispensed: 1000 mL bag, Site: #1 right AC. Medication Ordered: IV NS : initial bolus 1000 mL (1000 mL/hr), then 1000 mL/hr for X1 (NOW); Lonny. Given 13:02 10/28/2016 Ember Bergman R.N. Medication Administered: ZOFRAN [IVP] (ONDANSETRON HCL), Dose: 4 mg IVP over 1 minute(s), Site: #1 right AC. Medication Ordered: Zofran IV 4 mg (NOW). Given 13:03 10/28/2016 Ember Bergman R.N. Medication Administered: TORADOL [IVP], Dose: 30 mg IVP over 1 minute(s), Site: #1 right AC. Medication Ordered: Toradol IV 30 mg (NOW). Given 13:05 10/28/2016 Ember Bergman R.N. Medication Administered: REGLAN [IVP] (METOCLOPRAMIDE HCL), Dose: 10 mg IVP over 1 minute(s), Site: #1 right AC. Medication Ordered: Reglan IV 10 mg (NOW). Given 13:35 10/28/2016 Ember Bergman R.N. Medication Administered: TYLENOL [PO] (ACETAMINOPHEN), Dose: 500 mg Tablets PO. Medication Ordered: Tylenol PO 500 mg (NOW). Given 13:42 10/28/2016 Ember Bergman R.N. Medication Administered: DILAUDID [IVP] (HYDROMORPHONE HCL PF), Dose: 0.5 mg IVP over 1 minute(s), Site: #1 right AC. Medication Ordered: Dilaudid IV 0.5 mg (HIGH ALERT MEDICATION, NOW). Given 13:42 10/28/2016 Ember Bergman R.N. Medication Administered: PHENERGAN [IVP] (PROMETHAZINE HCL), Dose: 12.5 mg IVP over 1 minute(s), Site: #1 right AC. Medication Ordered: Phenergan IV 12.5 mg (HIGH ALERT MEDICATION, NOW). Given 15:05 10/28/2016 Ember Bergman RSunshineN. Medication Administered: AZITHROMYCIN [PO], Dose: 500 mg Capsules PO. Medication Ordered: Azithromycin PO 500 mg (NOW).
--- NOTE | 2016-10-28 16:23 | DIAGNOSTIC IMAGING REPORT ---
PROCEDURE: XR CHEST 2 VIEW INDICATION: FEVER TECHNIQUE: PA and lateral view. COMPARISON: None. FINDINGS: Lungs are clear. Cardiovascular structures are normal. Bony thorax is unremarkable. IMPRESSION: 1. Negative chest.
== END 2016-10-28 15:30 | disposition home or self-care (01) ==
LOC: ED SRH 12:33
DX: J18.9 Pneumonia, unspecified organism (principal); K52.9 Noninfective gastroenteritis and colitis, unspecified; R19.7 Diarrhea, unspecified
CPT/HCPCS: 90004; 90100; 91400; 92235; 93004; 95059